=== PATIENT | female | born 1990 | race Caucasian/White ===

== ENCOUNTER → 2021-08-14 | Outpatient (CLI) | payer BC ==
--- NOTE | 2021-08-14 15:40 | RAD ---
EXAM: RENAL ULTRASOUND CLINICAL HISTORY: Reason: FREQUENT URINATION, INCOMPLETE BLADDER EMPTYING / Spl. Instructions: W/ PVR / History: COMPARISON: None available. TECHNIQUE: Ultrasound examination of the bilateral kidneys and urinary bladder was performed. FINDINGS: The right kidney measures 13.3 cm in bipolar length. The renal cortex is normal in thickness. Renal e chogenicity is normal. There is no evidence for hydronephrosis, shadowing renal calculus or focal ab normality . The left kidney measures 13.6 cm in bipolar length. The renal cortex is normal in thickness. Renal ec hogenicity is normal. There is no evidence for hydronephrosis, shadowing renal calculus or focal abno rmality. Images of the partially filled urinary bladder are unremarkable. Prevoid bladder volume measures 250 mL. Postvoid bladder volume measures 26 mL. Visualized aorta is grossly normal in caliber. IMPRESSION: Prevoid bladder volume measures 250 mL. Postvoid bladder volume measures 26 mL. Electronically signed by: Robbie Grey MD (08/14/2021 3:38 PM) [id number]
== END ==
LOC: US 09:44
PROVIDERS: ATTEND Family Medicine
DX: R35.0 Frequency of micturition (principal); R33.9 Retention of urine, unspecified
CPT/HCPCS: 76770

== ENCOUNTER 2021-09-05 09:25 | Emergency (ER) | payer BC ==
[~2021-09-05] VITALS: Ht 167.6 cm; Wt 64.0 kg
[2021-09-05] MEDS ORDERED: IV NORMAL SALINE 1,000ML 1,000 ML IV ONE (10:00)
[2021-09-05] MEDS ORDERED: ONDANSETRON PF 4 MG/2 ML VIAL. IVP ONE ×2 (10:00→12:00)
[2021-09-05] MEDS ORDERED: MORPHINE SULFATE 4 MG/ML DISP.SYRIN. IV ONE (10:00)
--- NOTE | 2021-09-05 10:01 | PHYS DOC ---
Adult General Chief Complaint Chief Complaint: FLANK PAIN HPI HPI Patient is a 31-year-old female presenting via EMS for abdominal pain. This is an acute on chronic issue. She has a history of chronic pancreatitis and states presenting symptoms feel like prior episodes. She has history of and cholecystectomy only, no other abdominal issues. States etiology of her pancreatitis is unknown as she stopped alcohol abuse 3 years ago and had her gallbladder removed due to concern this was causing her flares. States she has been on a bus trying to get across [place] but ongoing pain prompted her to stop in local region where she subsequently called EMS to transport to our facility for evaluation. She has no other medical issues. Denies tobacco abuse or alcohol abuse, does admit to ongoing marijuana abuse. Review of Systems Review of Systems Fourteen body systems of review of systems have been reviewed. See HPI for pertinent positives and negative responses, other borden all other systems are negative, non-pertinent or non-contributory Physical Exam Physical Exam Constitutional: Age-appropriate, malodorous with poor overall hygiene, nontoxic in appearance HENT: Normocephalic, atraumatic, bilateral external ears normal, oropharynx moist, no oral exudates, nose normal. Eyes: PERRLA, EOMI, conjunctiva normal, no discharge. Neck: Normal range of motion, no tenderness, supple, no stridor. Cardiovascular: Heart rate regular, sinus rhythm, no murmurs rubs or gallops Lungs & Thorax: Bilateral breath sounds clear to auscultation Abdomen: Bowel sounds normal, soft, epigastric tenderness to palpation with voluntary guarding, no rebound, no masses, no pulsatile masses. Nonsurgical abdomen, no peritoneal signs Skin: Warm, dry, no erythema, no rash. Back: No tenderness, no CVA tenderness. Extremities: No tenderness, no cyanosis, no clubbing, ROM intact, no edema. Neurologic: Alert and oriented X 3, grossly normal motor & sensory function, no focal deficits noted. Psychologic: Anxious affect and mood EKG EKG [] Radiology/Procedures Radiology/Procedures [] Heart Score C/O Chest Pain: No Risk Factors: Risk Factors: DM, Current or recent (<one month) smoker, HTN, HLP, family history of CAD, obesity. Risk Scores: Risk Factors: DM, Current or recent (<one month) smoker, HTN, HLP, family history of CAD, obesity. Course & Med Decision Making Course & Med Decision Making Pertinent Labs and Imaging studies reviewed. (See chart for details) [] Dragon Disclaimer Dragon Disclaimer This electronic medical record was generated, in whole or in part, using a voice recognition dictation system. Departure Departure: Referrals: JANE SMITH (PCP) CHRIS MCMAHAN DO Sep 05, 2021 10:01
--- NOTE | 2021-09-05 10:15 | PHYS DOC ---
Past History Past Medical History: Urolithias Past Surgical History: Hysterectomy Adult General Chief Complaint Chief Complaint: FLANK PAIN HPI HPI Patient is a 31-year-old female presenting to ED via car for right-sided abdominal and flank pain that began an hour and a half ago. She has a previous history of nephrolithiasis, her last episode occurring roughly occurring 4 years ago. Today, she is presenting with severe flank pain that radiates around to her right groin. Reports ongoing nausea and vomiting. complains of dysuria with no visible blood. Denies fever, chills, chest pain. Confirms difficulty breathing secondary to abdominal pain. Indicated that she drove here herself after experiencing pain similar to her last episode. Reported morphine helped to relieve pain at that time. Denies medications, allergies. Reports previous hysterectomy.. Review of Systems Review of Systems Fourteen body systems of review of systems have been reviewed. See HPI for pertinent positives and negative responses, other borden all other systems are negative, non-pertinent or non-contributory Current Medications Current Medications Current Medications Medications (Trade) Dose Ordered Sig/Olena Start Time Stop Time Status Last Admin Dose Admin Morphine Sulfate (Morphine 4mg Syringe) 4 mg 1X ONCE 09/05/21 10:00 09/05/21 10:01 UNV Ondansetron HCl (Zofran) 4 mg 1X ONCE 09/05/21 10:00 09/05/21 10:01 UNV Sodium Chloride 1,000 ml @ 1,000 mls/hr 1X ONCE 09/05/21 10:00 09/05/21 10:59 UNV Allergies Allergies NKDA Physical Exam Physical Exam Constitutional: Well developed, well nourished, no acute distress, non-toxic appearance. HENT: Normocephalic, atraumatic, bilateral external ears normal, oropharynx moist, no oral exudates, nose normal. Eyes: PERRLA, EOMI, conjunctiva normal, no discharge. Neck: Normal range of motion, no tenderness, supple, no stridor. Cardiovascular: Heart rate regular, sinus rhythm, no murmurs rubs or gallops Lungs & Thorax: Bilateral breath sounds clear to auscultation Abdomen: Bowel sounds normal, soft, no tenderness, no masses, no pulsatile masses. Nonsurgical abdomen, no peritoneal signs Skin: Warm, dry, no erythema, no rash. Back: No tenderness, no CVA tenderness. Extremities: No tenderness, no cyanosis, no clubbing, ROM intact, no edema. Neurologic: Alert and oriented X 3, grossly normal motor & sensory function, no focal deficits noted. Psychologic: Affect normal, judgement normal, mood normal. Current Patient Data Vital Signs Vital Signs Date Time Temp Pulse Resp B/P (MAP) Pulse Ox O2 Delivery O2 Flow Rate FiO2 09/05/21 09:53 97.6 86 18 140/85 (103) 96 Room Air Lab Results Laboratory Tests Test 09/05/21 09:45 09/05/21 10:00 Urine Collection Type Unknown Urine Color Yellow Urine Clarity Hazy Urine pH 6.0 Urine Specific [place] >=1.030 Urine Protein 100 mg/dl Urine Glucose (UA) Neg mg/dL Urine Ketones (Stick) Neg mg/dL Urine Blood Large Urine Nitrite Neg Urine Bilirubin Neg Urine Urobilinogen Dipstick 0.2 mg/dL Urine Leukocyte Esterase Neg Urine RBC 20-40 /HPF Urine WBC Occ /HPF Urine Squamous Epithelial Cells Mod /LPF Urine Bacteria 0 /HPF Urine Mucus Mod /LPF White Blood Count 7.7 x10^3/uL Red Blood Count 4.63 x10^6/uL Hemoglobin 13.4 g/dL Hematocrit 40.6 % Mean Corpuscular Volume 88 fL Mean Corpuscular Hemoglobin 29 pg Mean Corpuscular Hemoglobin Concent 33 g/dL Red Cell Distribution Width 13.5 % Platelet Count 275 x10^3/uL Neutrophils (%) (Auto) 69 % Lymphocytes (%) (Auto) 22 % Monocytes (%) (Auto) 8 % Eosinophils (%) (Auto) 1 % Basophils (%) (Auto) 0 % Neutrophils # (Auto) 5.3 x10^3uL Lymphocytes # (Auto) 1.7 x10^3/uL Monocytes # (Auto) 0.6 x10^3/uL Eosinophils # (Auto) 0.0 x10^3/uL Basophils # (Auto) 0.0 x10^3/uL Sodium Level 139 mmol/L Potassium Level 3.5 mmol/L Chloride Level 105 mmol/L Carbon Dioxide Level 21 mmol/L Anion Gap 13 Blood Urea Nitrogen 9 mg/dL Creatinine 0.7 mg/dL Estimated GFR (Cockcroft-Gault) 98.9 Glucose Level 112 mg/dL Calcium Level 8.7 mg/dL Current Medications Medications (Trade) Dose Ordered Sig/Olena Route PRN Reason Start Time Stop Time Status Last Admin Dose Admin Morphine Sulfate (Morphine 4mg Syringe) 4 mg 1X ONCE IV 09/05/21 10:00 09/05/21 10:21 DC 09/05/21 10:04 Ondansetron HCl (Zofran) 4 mg 1X ONCE IVP 09/05/21 10:00 09/05/21 10:21 DC 09/05/21 10:05 Sodium Chloride 1,000 ml @ 1,000 mls/hr 1X ONCE IV 09/05/21 10:00 09/05/21 10:59 DC 09/05/21 10:04 Hydromorphone HCl (Dilaudid) 0.5 mg 1X ONCE IVP 09/05/21 10:30 09/05/21 10:48 DC 09/05/21 10:58 Ondansetron HCl (Zofran) 4 mg 1X ONCE IVP 09/05/21 12:00 09/05/21 12:01 DC 09/05/21 11:55 Hydromorphone HCl (Dilaudid) 0.5 mg 1X ONCE IVP 09/05/21 12:00 09/05/21 12:01 DC 09/05/21 11:55 Fentanyl Citrate (Fentanyl 2ml Vial) 50 mcg 1X ONCE IVP 09/05/21 12:15 09/05/21 12:21 DC 09/05/21 12:21 Fentanyl Citrate (Fentanyl 2ml Vial) 100 mcg STK-MED ONCE .ROUTE 09/05/21 12:20 09/05/21 12:21 DC EKG EKG [] Radiology/Procedures Radiology/Procedures US RENAL BILAT History: Right-sided kidney stone. Comparison: 08/14/2021 Technique: Sonographic examination of the kidneys and bladder. Findings: Right kidney: 13.1 cm length. There is mild right hydronephrosis, new from comparison. No stone is identified. Left kidney: 13.2 cm length. No focal lesion, calculi or hydronephrosis. Bladder: The bladder is not identified. No distal ureterectasis. Aorta/IVC: Visualized portions are unremarkable. Other: No ascites. Impression: 1. Mild right hydronephrosis, new from comparison. 2. Nonvisualization of the decompressed bladder. Electronically signed by: Demarcus Cisneros MD (09/05/2021 11:52 AM) [id number] Heart Score C/O Chest Pain: No Risk Factors: Risk Factors: DM, Current or recent (<one month) smoker, HTN, HLP, family history of CAD, obesity. Risk Scores: Risk Factors: DM, Current or recent (<one month) smoker, HTN, HLP, family history of CAD, obesity. Course & Med Decision Making Course & Med Decision Making ABCs unremarkable HPI physical exam and comprehensive ER work-up nonconcerning for any emergent or surgical issues I discussed most likely diagnosis of kidney stone, especially in setting of patient with history of this with similar symptoms I disclosed all findings in its entirety such as hematuria without any significant kidney impairment per laboratory analysis and/or ultrasound Patient responded to ER intervention that included IV fluid resuscitation, pain and nausea medications Joint decision made to defer CT imaging at this time in a patient with known kidney issues. I discussed without this image I could not definitively say her pain is from kidney stone origin but given pain and reasoning above, decision made to treat anyways Patient does say she has a previously scheduled outpatient follow-up with urology this upcoming Wednesday as she has history of kidney stones in issues. She feels comfortable providing supportive care, straining urine, taking nausea and pain medication as needed until this visit Strict return precautions were discussed with good understanding by patient, all questions and concerns addressed prior to ER departure [place] Disclaimer Dragon Disclaimer This electronic medical record was generated, in whole or in part, using a voice recognition dictation system. Departure Departure: Impression: Primary Impression: Right flank pain Additional Impression: History of kidney stones Disposition: HOME / SELF CARE / HOMELESS Condition: STABLE Referrals: JANE SMITH (PCP) Additional Instructions: You have been evaluated in the Emergency Department today for flank pain. Your evaluation was not suggestive of any emergent condition requiring medical intervention at this time. However, some abdominal problems make take more time to appear. Therefore, it is important for you to watch for any new symptoms or worsening of your current condition. As disclosed, you have blood in your urine and ultrasonography findings of mild right kidney irritation without any obvious stone or other abnormalities. With this said, I disclose this is not a perfect test. I discussed and offered CT imaging to better evaluate flank pain but this was deferred due to risk of radiation. As such, joint decision was made to treat this as if it was a kidney stone for which she had history of and feels similar to in the past. Please take prescribed pain medications for severe pain only of Tylenol and/or ibuprofen do not work. I have also prescribed you Zofran medication which should be used for nausea. Please keep your urology follow-up that was previously scheduled this upcoming Wednesday for review of your ER visit today. Return to the Emergency Department if you experience worsening pain, persistent fevers greater than 100.4, recurrent vomiting, blood in vomit, blood in stool, dark tarry stool, chest pain, difficulty breathing, or any other concerning symptoms. Scripts Tamsulosin Hcl (FLOMAX) 0.4 Mg Cap.er.24h 1 CAP PO DAILY for kidney stone, #30 CAP 0 Refills Prov: CHRIS MCMAHAN DO 09/05/21 Hydrocodone Bit/Acetaminophen (HYDROCODONE-APAP 7.5-325 ) 1 Each Tablet 1 TAB PO PRN Q6HRS PRN for PAIN, #20 TAB 0 Refills Prov: CHRIS MCMAHAN DO 09/05/21 Ondansetron (ONDANSETRON ODT) 4 Mg Tab.rapdis 1 TAB PO PRN Q6-8HRS for nausea, #16 TAB Prov: CHRIS MCMAHAN DO 09/05/21 Problem Qualifiers CHRIS MCMAHAN DO Sep 05, 2021 10:15
[2021-09-05 10:21] LABS: BASO % 0 % (0-3); EOS % 1 % (0-3); HEMATOCRIT 40.6 % (36.0-47.0); HEMOGLOBIN 13.4 g/dL (12.0-15.5); LYMPH # 1.7 x10^3/uL (1.0-4.8); LYMPH % 22 % (24-48); MEAN CORPUSCULAR HEMOGLOBIN 29 pg (25-35); MEAN CORPUSCULAR HGB CONC 33 g/dL (31-37); MEAN CORPUSCULAR VOLUME 88 fL (79-100); MONO # 0.6 x10^3/uL (0.0-1.1); MONO % 8 % (0-9); NEUT # 5.3 x10^3uL (1.8-7.7); NEUT % 69 % (31-73); PLATELET COUNT 275 x10^3/uL (140-400); RED BLOOD COUNT 4.63 x10^6/uL (3.50-5.40); RED CELL DISTRIBUTION WIDTH 13.5 % (11.5-14.5); WHITE BLOOD COUNT 7.7 x10^3/uL (4.0-11.0)
[2021-09-05 10:30] LABS: CALCIUM 8.7 mg/dL (8.5-10.1); CREATININE 0.7 mg/dL (0.6-1.0); GFR 98.9; POTASSIUM 3.5 mmol/L (3.5-5.1)
[2021-09-05] MEDS ORDERED: HYDROmorphone PF 1 MG/ML DISP.SYRIN IVP ONE ×2 (10:30→12:00)
[2021-09-05 10:55] LABS: BILIRUBIN,URINE NEG (NEG); CLARITY,URINE HAZY; COLOR,URINE YELLOW; GLUCOSE,URINE NEG (NEG); NITRITE,URINE NEG (NEG); SQUAMOUS EPITHELIAL CELL,UR MOD /LPF; UROBILINOGEN,URINE 0.2 mg/dL (0.2 mg/dL)
[2021-09-05 10:56] LABS: BACTERIA,URINE 0 /HPF (0-FEW); RBC,URINE 20-40 /HPF (0-2); WBC,URINE OCC /HPF (0-4)
--- NOTE | 2021-09-05 11:54 | RAD ---
US RENAL BILAT History: Right-sided kidney stone. Comparison: 08/14/2021 Technique: Sonographic examination of the kidneys and bladder. Findings: Right kidney: 13.1 cm length. There is mild right hydronephrosis, new from comparison. No stone is id entified. Left kidney: 13.2 cm length. No focal lesion, calculi or hydronephrosis. Bladder: The bladder is not identified. No distal ureterectasis. Aorta/IVC: Visualized portions are unremarkable. Other: No ascites. Impression: 1. Mild right hydronephrosis, new from comparison. 2. Nonvisualization of the decompressed bladder. Electronically signed by: Demarcus Cisneros MD (09/05/2021 11:52 AM) [id number]
[2021-09-05] MEDS ORDERED: HYDR-2765 PO (12:32)
[2021-09-05] MEDS ORDERED: ONDA4TAB12 PO (12:32)
[2021-09-05 12:45] VITALS: BP 129/90
[2021-09-05] MEDS ORDERED: TAMS0.4C97 PO (12:50)
== END 2021-09-05 12:48 | disposition home or self-care (01) ==
LOC: ER 09:25
DX: R10.9 Unspecified abdominal pain (principal); R11.2 Nausea with vomiting, unspecified; R30.0 Dysuria; Z90.710 Acquired absence of both cervix and uterus
CPT/HCPCS: 36415; 76770; 80048; 81001; 85025; 96361; 96374; 96375; 96376; 99284; J1170; J2270; J2405; J3010; J7030

== ENCOUNTER 2021-09-12 10:59 | Emergency (ER) | payer BC ==
[~2021-09-12] VITALS: Ht 167.6 cm; Wt 64.0 kg
[~2021-09-12 10:59] MED LIST: HYDR-2765 PO; ONDA4TAB12 PO; TAMS0.4C97 PO
--- NOTE | 2021-09-12 13:43 | RAD ---
EXAM: CT Abdomen and Pelvis without IV contrast CLINICAL HISTORY: Right flank pain for weeks COMPARISON: none TECHNIQUE: Helical CT of the abdomen and pelvis without intravenous contrast. Axial, coronal and sagi ttal reformatted images were generated. PQRS compliance statement - One or more of the following individualized dose reduction techniques wer e utilized for this study: 1. Automated exposure control 2. Adjustment of the mA and/or kV according to patient size 3. Use of iterative reconstruction technique FINDINGS: Lack of intravenous contrast limits evaluation of solid organs, vasculature, and lymph nodes. Lower chest: Lung bases are clear. Abdomen and Pelvis: Liver, gallbladder, spleen, pancreas and adrenal glands aren't unremarkable. Nonobstructing left lowe r pole renal calculus measures 4 mm. Punctate nonobstructing right upper pole renal calculus. No foca l renal lesion. There is moderate right hydronephrosis and hydroureter to the level of a calculus at the right ureterovesicular junction measuring 5 mm. Moderate colonic stool content is seen. No small or large bowel dilatation. No bowel obstruction. No abdominal or pelvic ascites. No abdominal or pelvic lymphadenopathy. No aggressive osseous lesion. Ap pendix is not well seen but likely normal in appearance. The ovaries are prominent in appearance, for example a left ovary measures 2.8 x 2.2 cm. The right ov king measures 2 cm, with appearing follicles/cysts. Uterus is not well visualized. No abdominal or pelvic lymphadenopathy. Bones: No aggressive osseous lesion is seen. IMPRESSION: 1. 5 mm right ureterovesicular junction calculus results in moderate right hydronephrosis/hydrourete r. 2. Nonobstructing bilateral renal calculi are also seen. Electronically signed by: Robbie Grey MD (09/12/2021 1:41 PM) AUBREY
--- NOTE | 2021-09-12 13:48 | PHYS DOC ---
Past History Past Medical History: Urolithias Past Surgical History: Hysterectomy Alcohol Use: None General Adult EDM: Chief Complaint: FLANK PAIN HPI: HPI: Patient is a [age] year old [sex] who presents with [] Review of Systems: Review of Systems: Constitutional: Denies fever or chills Eyes: Denies change in visual acuity HENT: Denies nasal congestion or sore throat Respiratory: Denies cough or shortness of breath Cardiovascular: Denies chest pain or edema GI: Denies abdominal pain, nausea, vomiting, bloody stools or diarrhea : Denies dysuria Musculoskeletal: Denies back pain or joint pain Integument: Denies rash Neurologic: Denies headache, focal weakness or sensory changes Endocrine: Denies polyuria or polydipsia Lymphatic: Denies swollen glands Psychiatric: Denies depression or anxiety Allergies: Allergies: Allergies Coded Allergies Type Severity Reaction Last Updated Verified No Known Drug Allergies 09/05/21 No Physical Exam: PE: Constitutional: Well developed, well nourished, no acute distress, non-toxic appearance. [] HENT: Normocephalic, atraumatic, bilateral external ears normal, oropharynx moist, no oral exudates, nose normal. [] Eyes: PERRLA, EOMI, conjunctiva normal, no discharge. [] Neck: Normal range of motion, no tenderness, supple, no stridor. [] Cardiovascular:Heart rate regular rhythm, no murmur [] Lungs & Thorax: Bilateral breath sounds clear to auscultation [] Abdomen: Bowel sounds normal, soft, no tenderness, no masses, no pulsatile masses. [] Skin: Warm, dry, no erythema, no rash. [] Back: No tenderness, no CVA tenderness. [] Extremities: No tenderness, no cyanosis, no clubbing, ROM intact, no edema. [] Neurologic: Alert and oriented X 3, normal motor function, normal sensory function, no focal deficits noted. [] Psychologic: Affect normal, judgement normal, mood normal. [] Current Patient Data: Vital Signs: Vital Signs Date Time Temp Pulse Resp B/P (MAP) Pulse Ox O2 Delivery O2 Flow Rate FiO2 09/12/21 12:17 98.0 74 18 124/81 (95) 99 Room Air EKG: EKG: [] Radiology/Procedures: Radiology/Procedures: [] Impressions: EXAM: CT Abdomen and Pelvis without IV contrast CLINICAL HISTORY: Right flank pain for weeks COMPARISON: none TECHNIQUE: Helical CT of the abdomen and pelvis without intravenous contrast. Axial, coronal and sagittal reformatted images were generated. PQRS compliance statement - One or more of the following individualized dose reduction techniques were utilized for this study: 1. Automated exposure control 2. Adjustment of the mA and/or kV according to patient size 3. Use of iterative reconstruction technique FINDINGS: Lack of intravenous contrast limits evaluation of solid organs, vasculature, and lymph nodes. Lower chest: Lung bases are clear. Abdomen and Pelvis: Liver, gallbladder, spleen, pancreas and adrenal glands aren't unremarkable. Nonobstructing left lower pole renal calculus measures 4 mm. Punctate nonobstructing right upper pole renal calculus. No focal renal lesion. There is moderate right hydronephrosis and hydroureter to the level of a calculus at the right ureterovesicular junction measuring 5 mm. Moderate colonic stool content is seen. No small or large bowel dilatation. No bowel obstruction. No abdominal or pelvic ascites. No abdominal or pelvic lymphadenopathy. No aggressive osseous lesion. Appendix is not well seen but likely normal in appearance. The ovaries are prominent in appearance, for example a left ovary measures 2.8 x 2.2 cm. The right ovary measures 2 cm, with appearing follicles/cysts. Uterus is not well visualized. No abdominal or pelvic lymphadenopathy. Bones: No aggressive osseous lesion is seen. IMPRESSION: 1. 5 mm right ureterovesicular junction calculus results in moderate right h ydronephrosis/hydroureter. 2. Nonobstructing bilateral renal calculi are also seen. Electronically signed by: Robbie Monteiro MD (09/12/2021 1:41 PM) [facility] DICTATED AND SIGNED BY: ROBBIE MONTEIRO MD DATE: 09/12/21 [id number] CC: ABDULLAHI LAST DO; JANE SMITH ~MTH0 0 Heart Score: C/O Chest Pain: N/A Risk Factors: Risk Factors: DM, Current or recent (<one month) smoker, HTN, HLP, family history of CAD, obesity. Risk Scores: Score 0 - 3: 2.5% MACE over next 6 weeks - Discharge Home Score 4 - 6: 20.3% MACE over next 6 weeks - Admit for Clinical Observation Score 7 - 10: 72.7% MACE over next 6 weeks - Early Invasive Strategies Course & Med Decision Making: Course & Med Decision Making Pertinent Labs and Imaging studies reviewed. (See chart for details) The patient's labs are unremarkable. Her urinalysis is significant for blood but not infection. The patient CT scan does show a 5 mm ureterovesicular junction calculus with hydronephrosis and hydroureter. I spoke with her urologist, Dr. Onesimo Stephenson and he has recommended we continue pain control and see if she will pass it over the weekend. He will see her first of next week for removal if not. I will discharge the patient on [place]. She is already on Flomax. She is stable for discharge at this time. [] Dragon Disclaimer: Dragon Disclaimer: This electronic medical record was generated, in whole or in part, using a voice recognition dictation system. Departure Departure: Impression: Primary Impression: Kidney stone on right side Disposition: HOME / SELF CARE / HOMELESS Condition: STABLE Referrals: JANE SMITH (PCP) Patient Instructions: Kidney Stones, [id number] Scripts Hydrocodone/Acetaminophen (Hydrocodone-Acetamin 7.5-325) 1 Each Tablet 1 EACH PO Q6HRS PRN for PAIN, #20 TAB Prov: ABDULLAHI LAST DO 09/12/21 ABDULLAHI LAST DO Sep 12, 2021 13:47
[2021-09-12] MEDS ORDERED: MORPHINE SULFATE 4 MG/ML DISP.SYRIN. IV ONE (14:00)
[2021-09-12] MEDS ORDERED: ONDANSETRON PF 4 MG/2 ML VIAL. IVP ONE (14:00)
[2021-09-12] MEDS ORDERED: TAMSULOSIN 0.4 MG CAP.ER.24H. PO ONE ×2 (14:00)
[2021-09-12] MEDS ORDERED: IV NORMAL SALINE 1,000ML 1,000 ML IV ONE (14:00)
[2021-09-12 14:36] LABS: BASO % 0 % (0-3); EOS # 0.1 x10^3/uL (0.0-0.7); EOS % 1 % (0-3); HEMATOCRIT 40.2 % (36.0-47.0); HEMOGLOBIN 13.2 g/dL (12.0-15.5); LYMPH # 2.1 x10^3/uL (1.0-4.8); LYMPH % 17 % (24-48); MEAN CORPUSCULAR HEMOGLOBIN 29 pg (25-35); MEAN CORPUSCULAR HGB CONC 33 g/dL (31-37); MEAN CORPUSCULAR VOLUME 89 fL (79-100); MONO # 0.8 x10^3/uL (0.0-1.1); MONO % 6 % (0-9); NEUT # 9.5 x10^3uL (1.8-7.7); NEUT % 76 % (31-73); PLATELET COUNT 266 x10^3/uL (140-400); RED BLOOD COUNT 4.54 x10^6/uL (3.50-5.40); RED CELL DISTRIBUTION WIDTH 13.4 % (11.5-14.5); WHITE BLOOD COUNT 12.4 x10^3/uL (4.0-11.0)
[2021-09-12 14:50] LABS: CREATININE 0.8 mg/dL (0.6-1.0); GFR 84.8
[2021-09-12 14:56] LABS: ALBUMIN 4.1 g/dL (3.4-5.0); ALBUMIN/GLOBULIN RATIO 1.4 (1.0-1.7); TOTAL BILIRUBIN 0.5 mg/dL (0.2-1.0); TOTAL PROTEIN 7.1 g/dL (6.4-8.2)
[2021-09-12 15:49] LABS: BILIRUBIN,URINE NEG (NEG); CLARITY,URINE CLEAR; COLOR,URINE YELLOW; GLUCOSE,URINE NEG (NEG)
[2021-09-12 15:50] LABS: BACTERIA,URINE 0 /HPF (0-FEW); NITRITE,URINE NEG (NEG); SQUAMOUS EPITHELIAL CELL,UR MANY /LPF; UROBILINOGEN,URINE 0.2 mg/dL (0.2 mg/dL); WBC,URINE 0 /HPF (0-4)
[2021-09-12] MEDS ORDERED: HYDR-2763 PO (16:06)
[2021-09-12 16:25] VITALS: BP 117/72
== END 2021-09-12 16:25 | disposition home or self-care (01) ==
LOC: ER 10:59
DX: N20.0 Calculus of kidney (principal); Z90.710 Acquired absence of both cervix and uterus
CPT/HCPCS: 36415; 74176; 80053; 81001; 81025; 85025; 96361; 96374; 96375; 99284; J2270; J2405; J7030